=== PATIENT | female | born 1990 | race Two or more races ===

== ENCOUNTER → 2020-02-22 | Outpatient (CLI) | payer MEDICAID ==
[~2020-02-22] VITALS: Ht 147.3 cm; Wt 61.2 kg
[~2020-02-22] MED LIST: IOHEXOL 300 MG/ML 100ML BOTTLE IJ ONE; MIDAZOLAM HCL 1MG/1ML-2 ML VIAL IV ONE; MIDAZOLAM HCL 1MG/1ML-2 ML VIAL ONE
== END | disposition home or self-care (01) ==
LOC: CT 08:17
DX: S42.032D Displaced fracture of lateral end of left clavicle, subsequent encounter for fracture with routine healing (principal); S22.089D Unspecified fracture of T11-T12 vertebra, subsequent encounter for fracture with routine healing; N28.1 Cyst of kidney, acquired; X58.XXXD Exposure to other specified factors, subsequent encounter
CPT/HCPCS: 71260; 74177; J2250; Q9967; 73201